=== PATIENT | male | born 1930 | race Caucasian/White ===

== ENCOUNTER 2019-01-28 10:26 | Day surgery (SDC) | payer MEDICARE, BC ==
[2019-01-27 08:59] VITALS: BMI 25.0
[2019-01-28 11:12] LABS: #Eosinphils 0.3 thou/uL (0.0-0.7); #Lymphocytes 1.5 thou/uL (1.20-3.40); #Monocytes 0.9 thou/uL (0.11-0.59); %Basophils 0.7 % (0.0-1.0); %Eosinophils 5.9 % (0.0-10.0); %Lymphocytes 26.3 % (21.0-51.0); %Monocytes 14.7 % (0.0-10.0); %Neutrophils 52.4 % (42.0-75.0); Hemoglobin 12.5 g/dL (14.0-18.0); Mean Corpuscular HGB CONC 31.6 g/dL (32.0-36.0); Mean Corpuscular Volume 88.6 fL (78.0-98.0); Mean Platelet Volume 7.3 fL (7.4-10.4); Platelet Count 228 thou/uL (130-400); RBC Distribution Width 14.5 % (11.5-14.5); Red Blood Cell (RBC) Count 4.47 mill/uL (4.70-6.10); White Blood Cell (WBC) Count 5.8 thou/uL (4.8-10.8)
[2019-01-28 11:19] LABS: INR-International Normal Ratio 1.3; Prothrombin Time 16.5 SEC (12.0-14.7)
[2019-01-28] MEDS ORDERED: PROPOFOL 20 ML ONE (11:30)
[2019-01-28 11:34] LABS: Anion Gap 13 mmol/L (10-20); BUN (Urea Nitrogen) 30 mg/dL (8.4-25.7); Calc. Creatinine Clearance 31 mL/min (70-130); Calcium 8.9 mg/dL (7.8-10.44); Carbon Dioxide 24 mmol/L (23-31); Chloride 107 mmol/L (98-107); Estimated GFR-MDRD 33; Glucose 102 mg/dL (83-110); Potassium 4.6 mmol/L (3.5-5.1); Sodium 139 mmol/L (136-145)
--- NOTE | 2019-01-28 20:30 | ECHO ---
DATE: 01/28/19 REFERRING PHYSICIAN: Dr. Omid Carey and Dr. Little. REASON FOR PROCEDURE: The patient has paroxysmal atrial fibrillation requiring anticoagulation due to DEBORAH-VASc score of 3, currently on Eliquis 2.5 mg twice a day which is difficult to continue hence history of bladder canc er and hematuria. He underwent a Watchman device placement about six weeks ago and he is here for a f ollow-up TIMBO. PROCEDURE: The patient received propofol by Anesthesia specialist. After adequate level of sedation achieved, a standard transesophageal echocardiogram probe was passed into the esophagus without diff iculty. Patient tolerated the procedure well, no complications noted. RESULTS: Left atrium is severely enlarged about 6 cm in horizontal diameter. The left atrial appendage well v isualized with a adequately seated Watchman device noted. Watchman device has significant amount of c lot noted by opacification behind the device. Also echo lucent spots are seen suggestive of residual blood flow in the left atrial appendage. The color flow Doppler interrogation does reveal 0.2 to 0.6 cm tunnel allowing communication from the left atrium to the space behind the Watchman device. Four out of four pulmonary veins were seen without stenosis. The mitral valve has mild regurgitation. The interatrial septum with the transseptal puncture residual flow visualized which is very restric dale. The aortic valve is sclerosis but not regurgitant or significantly stenotic. The tricuspid valve has mild regurgitation. The pulmonary valve has no regurgitation. Pericardial space has mild effusio n mostly localized by the left atrial appendage area. The ventricular systolic function is preserved. Left ventricular wall thickness is increased. The right sided chambers are nondilated. Pacemaker wir es noted in the right sided chambers. 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 Only mild adherent atheroma seen in the descending aorta. CONCLUSION: 1. Adequately seated Watchman device with residual flow and suboptimal opacification behind the Watc hman device seen. 2. Severe left atrial enlargement. 3. Normal left ventricular systolic function. 4. Left ventricular hypertrophy. 5. Mild to moderate mitral regurgitation, mild tricuspid regurgitation. 6. Residual flow throughout the transseptal puncture site of no hemodynamic significance. 7. Small focalized pericardial effusion without hemodynamic significance. 8. Pacemaker wires in the right sided chambers. PLAN: For now, we will continue anticoagulation and we will discuss with Dr. Little/Dr. Beth regarding possibility of coil closure.
== END 2019-01-28 14:45 | disposition home or self-care (01) ==
LOC: CCL 10:26
PROVIDERS: ATTEND Internal Medicine Cardiovascular Disease
PROC: B24BZZ4 Ultrasonography of Heart with Aorta, Transesophageal (ICD-10-PCS; principal; 2019-01-28)
DX: I48.0 Paroxysmal atrial fibrillation (principal); I10 Essential (primary) hypertension; I08.1 Rheumatic disorders of both mitral and tricuspid valves; I35.8 Other nonrheumatic aortic valve disorders; C67.9 Malignant neoplasm of bladder, unspecified; Z79.01 Long term (current) use of anticoagulants; Z79.51 Long term (current) use of inhaled steroids; Z79.899 Other long term (current) drug therapy; Z88.8 Allergy status to other drugs, medicaments and biological substances; Z95.0 Presence of cardiac pacemaker; Z95.818 Presence of other cardiac implants and grafts
CPT/HCPCS: 36415; 80048; 85025; 85610; 85730; 93005; 93010; 93312; J2704

== ENCOUNTER 2019-05-13 05:58 | Day surgery (SDC) | payer MEDICARE, BC ==
[2019-05-12 12:46] VITALS: BMI 25.1
[2019-05-13 06:59] LABS: #Basophils 0.1 thou/uL (0.0-0.2); #Eosinphils 0.5 thou/uL (0.0-0.7); #Lymphocytes 2.1 thou/uL (1.20-3.40); #Monocytes 0.8 thou/uL (0.11-0.59); #Neutrophils 3.2 thou/uL (1.40-6.50); %Eosinophils 7.7 % (0.0-10.0); %Lymphocytes 31.6 % (21.0-51.0); %Monocytes 11.7 % (0.0-10.0); Mean Corpuscular HGB CONC 32.9 g/dL (32.0-36.0); Mean Corpuscular Hemoglobin 29.2 pg (27.0-31.0); Mean Corpuscular Volume 88.9 fL (78.0-98.0); Platelet Count 200 thou/uL (130-400); RBC Distribution Width 15.7 % (11.5-14.5); Red Blood Cell (RBC) Count 4.79 mill/uL (4.70-6.10); White Blood Cell (WBC) Count 6.7 thou/uL (4.8-10.8)
[2019-05-13 07:08] LABS: Anion Gap 14 mmol/L (10-20); BUN (Urea Nitrogen) 39 mg/dL (8.4-25.7); Calc. Creatinine Clearance 31 mL/min (70-130); Calcium 9.2 mg/dL (7.8-10.44); Carbon Dioxide 20 mmol/L (23-31); Chloride 113 mmol/L (98-107); Estimated GFR-MDRD 34; Glucose 97 mg/dL (83-110); Potassium 4.5 mmol/L (3.5-5.1); Sodium 142 mmol/L (136-145)
[2019-05-13 07:14] LABS: INR-International Normal Ratio 1.3; Prothrombin Time 16.3 SEC (12.0-14.7)
[2019-05-13] MEDS ORDERED: PROPOFOL 40 ML ONE (07:29)
--- NOTE | 2019-05-15 15:19 | EKG ---
Test Reason : PREOP TIMBO Blood Pressure : / mmHG Vent. Rate : 070 BPM Atrial Rate : 072 BPM P-R Int : 000 ms QRS Dur : 184 ms QT Int : 496 ms P-R-T Axes : 000 -64 097 degrees QTc Int : 535 ms Electronic ventricular pacemaker When compared with ECG of 28-JAN-2019 11:27, Vent. rate has decreased BY [address] Tyrel STARKEY ([id number]) on 05/15/2019 3:18:59 PM Referred By: [facility] Confirmed By:DR. Tyrel STARKEY
--- NOTE | 2019-05-15 15:55 | ECHO ---
DATE OF SERVICE: 05/13/19 REFERRING PHYSICIAN: Dr. Omid Carey; Dr. Loo. REASON FOR PROCEDURE: The patient is an 89-year-old man with history of paroxysmal atrial fibrillation, mild aortic scleros is, moderate MR by history who is here after a Watchman device placement in December. Six weeks post Wa tchman device TIMBO demonstrated a small leak. He is here for repeat TIMBO. PROCEDURE: The patient received propofol by Anesthesia specialist. After adequate level of sedation achieved, a standard transesophageal echocardiogram probe was passed into the esophagus without diff iculty. Patient tolerated the procedure well, no complications noted. RESULTS: Left atrium is mildly enlarged. The left atrial appendage is well visualized with adequately seated Watchman device in place. Adequate opacification behind the Watchman device in the left atrial append age is seen. No definite communication is noted adjacent to the Watchman device back to the left atri al appendage. Four out of four pulmonary veins were seen without stenosis. The mitral valve has mild regurgitation. 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 No residual self ncy of the foramen ovale or signs of the prior transseptal puncture is seen. Left ventricular systoli c function is preserved with mild LVH. Aortic valve is mild to moderately stenosed without regurgitat ion and with some sclerosis. Tricuspid valve is with mild regurgitation. Pacemaker wire is noted in t he right sided chambers. Pericardial space without effusion. The visualized portion of ascending and descending aorta without aneurysm, dissection or significant atheroma. CONCLUSION: 1. Good quality TIMBO. 2. Adequately seated and sealed Watchman device in place. 3. Normal LV systolic function. 4. Mild MR. Mild to moderate aortic stenosis. Mild TR is seen. 5. Pacing wires in right sided chambers. PLAN: Stop Eliquis and transition to aspirin and Plavix for remainder of the keegan months post Watchman impla ntation. Six weeks follow-up.
== END 2019-05-13 09:36 | disposition home or self-care (01) ==
LOC: CCL 05:58
PROVIDERS: ATTEND Internal Medicine Cardiovascular Disease
PROC: B24BZZ4 Ultrasonography of Heart with Aorta, Transesophageal (ICD-10-PCS; principal; 2019-05-13)
DX: I48.0 Paroxysmal atrial fibrillation (principal); I34.0 Nonrheumatic mitral (valve) insufficiency; I35.0 Nonrheumatic aortic (valve) stenosis
CPT/HCPCS: 80048; 85025; 85610; 85730; 93005; 93010; 93312; J2704